=== PATIENT | male | born 1990 | race American Indian/Alaskan Native ===

== ENCOUNTER 2017-03-07 09:48 | Emergency (ER) | payer SELFPAY ==
[2017-03-07 09:58] VITALS: BP 137/95
[2017-03-07 10:30] LABS: Basophils % (Auto) 0.5 % (0.0-1.8); Eosinophils % (Auto) 1.4 % (0.0-4.3); Hematocrit 41.7 % (35.5-45.6); Hemoglobin 14.2 gm/dl (11.8-15.2); Mean Corpuscular HGB Conc 34 % (32-34); Mean Corpuscular Hemoglobin 31 pg (28-32); Mean Corpuscular Volume 91 fl (84-94); Platelet Count 161 K/mm3 (140-440); Red Blood Count 4.59 M/mm3 (3.65-5.03); Red Cell Distribution Width 14.1 % (13.2-15.2); White Blood Count 4.9 K/mm3 (4.5-11.0)
[2017-03-07 10:36] LABS: Anion Gap 20 mmol/L; BUN/Creatinine Ratio 6.25; Blood Urea Nitrogen 5 mg/dL (9-20); Calcium 9.5 mg/dL (8.4-10.2); Carbon Dioxide 27 mmol/L (22-30); Chloride 94.1 mmol/L (98-107); Glucose 103 mg/dL (75-100); Potassium 3.8 mmol/L (3.6-5.0); Sodium 137 mmol/L (137-145)
[2017-03-07 10:50] LABS: Bilirubin,Urine NEG (Negative); Blood,Urine SM (Negative); Ketones,Urine NEG (Negative); Leukocyte Esterase,Urine NEG (Negative); Nitrite,Urine NEG (Negative); Protein,Urine <15 mg/dL mg/dL (Negative); Urobilinogen,Urine < 2.0 mg/dL (<2.0); WBC,Urine < 1.0 /HPF (0.0-6.0)
[2017-03-07] MEDS ORDERED: ZOFRAN ODT PO ONE (12:15)
--- NOTE | 2017-03-07 12:42 | Emergency Department Report ---
Entered by BONG JACK, acting as scribe for ISRAEL HARDY PA. ED N/V/D HPI - General Chief complaint: Nausea/Vomiting/Diarrhea Stated complaint: VOMITING BLOOD/NO APPETITE Time Seen by Provider: 03/07/17 11:31 Source: patient Mode of arrival: Ambulatory Limitations: No Limitations - History of Present Illness Initial comments: 26 y/o male with asthma, presents to the Ed c/o nausea and vomiting that began 4 days ago. Associated symptoms include fatigue but he denies diarrhea, abdominal pain, fever and chills. No vomiting today.Denies urinary burning, frequency or urgency. denies Back pain. Admits to alcohol use and that he takes Goody powder a lot to prevent her from getting a headache when he drinks beer. Denies ETOH use over the last 4 days. Denies GONZALEZ. No alleviating or aggravating factors. NKDA. Patient said he was having N/V for the first 2 days. no vomiting since yesterday. No nausea today. He said he is feeling better. MD complaint: nausea, vomiting Onset/Timin -: days(s) Description of Vomiting: food contents Associated Abdominal Pain: No Pain Scale: 0 Improves with: none Worsens with: none Context: other ([place]) Associated Symptoms: nausea/vomiting. denies: myalgias, chest pain, cough, diaphoresis, fever/chills, headaches, loss of appetite, malaise, rash, dysuria, shortness of breath, syncope - Related Data Previous Rx's Medication Instructions Recorded Last Taken Type Promethazine [Phenergan TAB] 25 mg PO Q8HR PRN #12 tab 03/07/17 Unknown Rx Allergies Allergy/AdvReac Type Severity Reaction Status Date / Time pineapple Allergy BREAK OUT Verified 03/07/17 09:53 AROUND MOUTH ED Review of Systems Comment: All other systems reviewed and negative Constitutional: other (fatigue). denies: chills, fever Eyes: denies: eye pain, vision change ENT: denies: ear pain, throat pain, congestion Respiratory: no symptoms reported Cardiovascular: denies: chest pain, palpitations, dyspnea on exertion, edema, syncope, paroxysmal nocturnal dyspnea Gastrointestinal: nausea, vomiting. denies: abdominal pain, diarrhea, constipation, hematemesis, melena, hematochezia Genitourinary: denies: urgency, dysuria, frequency, hematuria, discharge, testicular pain, testicular mass Musculoskeletal: denies: back pain, joint swelling, arthralgia, myalgia Skin: denies: rash Neurological: denies: headache, weakness, numbness, paresthesias, confusion, abnormal gait, vertigo ED Past Medical Hx - Past Medical History Previous Medical History?: Yes Hx Asthma: Yes - Surgical History Past Surgical History?: No - Family History Family history: hypertension - Social History Smoking Status: Never Smoker Substance Use Type: Alcohol - Medications Home Medications: Home Medications Medication Instructions Recorded Confirmed Last Taken Type Promethazine [Phenergan TAB] 25 mg PO Q8HR PRN #12 tab 03/07/17 Unknown Rx ED Physical Exam - General Limitations: No Limitations General appearance: alert, in no apparent distress - Head Head exam: Present: atraumatic, normocephalic - Eye Eye exam: Present: normal appearance, PERRL, EOMI. Absent: conjunctival injection, nystagmus Pupils: Present: normal accommodation - ENT ENT exam: Present: normal exam, normal orophraynx, mucous membranes moist, TM's normal bilaterally, normal external ear exam - Neck Neck exam: Present: normal inspection, full ROM, other (supple). Absent: tenderness, meningismus, lymphadenopathy - Respiratory Respiratory exam: Present: normal lung sounds bilaterally. Absent: wheezes, rales, rhonchi, accessory muscle use - Cardiovascular Cardiovascular Exam: Present: regular rate, normal rhythm, normal heart sounds - GI/Abdominal GI/Abdominal exam: Present: soft, normal bowel sounds. Absent: distended, tenderness, guarding, rebound, rigid - Extremities Exam Extremities exam: Present: normal inspection, full ROM, normal capillary refill. Absent: tenderness, pedal edema, joint swelling, calf tenderness - Back Exam Back exam: Present: full ROM. Absent: tenderness, CVA tenderness (R), CVA tenderness (L), muscle spasm, paraspinal tenderness, vertebral tenderness, rash noted - Neurological Exam Neurological exam: Present: alert, oriented X3, normal gait - Psychiatric Psychiatric exam: Present: normal affect, normal mood - Skin Skin exam: Present: warm, dry, intact, normal color, other. Absent: rash ED Course Vital Signs 03/07/17 09:55 Temperature 98.4 F Pulse Rate 80 Respiratory 17 Rate Blood Pressure 137/95 O2 Sat by Pulse 100 Oximetry - Reevaluation(s) Reevaluation #1: 03/07/17 12:27 Patient here for nausea and vomiting 4 days. Patient to the emergency room and tolerated w 240 cc of Epogen without any nausea. He was given Zofran 4 mg ODT emergency room. ED Medical Decision Making - Lab Data Result diagrams: 03/07/17 10:00 03/07/17 10:00 Lab Results 03/07/17 03/07/17 03/07/17 Range/Units 10:00 10:00 10:39 WBC 4.9 (4.5-11.0) K/mm3 RBC 4.59 (3.65-5.03) M/mm3 Hgb 14.2 (11.8-15.2) gm/dl Hct 41.7 (35.5-45.6) % MCV 91 (84-94) fl MCH 31 (28-32) pg MCHC 34 (32-34) % RDW 14.1 (13.2-15.2) % Plt Count 161 (140-440) K/mm3 Lymph % (Auto) 48.0 H (13.4-35.0) % Kane % (Auto) 13.6 H (0.0-7.3) % Eos % (Auto) 1.4 (0.0-4.3) % Baso % (Auto) 0.5 (0.0-1.8) % Lymph # 2.3 (1.2-5.4) K/mm3 Kane # 0.7 (0.0-0.8) K/mm3 Eos # 0.1 (0.0-0.4) K/mm3 Baso # 0.0 (0.0-0.1) K/mm3 Seg Neutrophils % 36.5 L (40.0-70.0) % Seg Neutrophils # 1.8 (1.8-7.7) K/mm3 Sodium 137 (137-145) mmol/L Potassium 3.8 (3.6-5.0) mmol/L Chloride 94.1 L (98-107) mmol/L Carbon Dioxide 27 (22-30) mmol/L Anion Gap 20 mmol/L BUN 5 L (9-20) mg/dL Creatinine 0.8 (0.8-1.5) mg/dL Estimated GFR > 60 ml/min BUN/Creatinine Ratio 6.25 % Glucose 103 H (75-100) mg/dL Calcium 9.5 (8.4-10.2) mg/dL Urine Color Straw (Yellow) Urine Turbidity Clear (Clear) Urine pH 6.0 (5.0-7.0) Ur Specific [place] 1.004 (1.003-1.030) Urine Protein <15 mg/dl (Negative) mg/dL Urine Glucose (UA) Neg (Negative) mg/dL Urine Ketones Neg (Negative) mg/dL Urine Blood Sm (Negative) Urine Nitrite Neg (Negative) Urine Bilirubin Neg (Negative) Urine Urobilinogen < 2.0 (<2.0) mg/dL Ur Leukocyte Esterase Neg (Negative) Urine WBC (Auto) < 1.0 (0.0-6.0) /HPF Urine RBC (Auto) 2.0 (0.0-6.0) /HPF - Medical Decision Making ED Course: Patient came to the emergency room complaining of nausea and vomiting over 4 days. No diarrhea. Able to Tolerated liquids in the emergency room without any nausea or vomiting. Patient given Zofran 4 mg ODT in ER. Patient also reported that and vomiting is better last rest on Thursday and Thursday. He reported that when the vomiting started he had blood times one emesis with vomiting for months. Last bowel movement was yesterday and was normal. Discussed the patient is to stop taking Goody powder as this can cause inflammation of the stomach lining. Patient was understanding of discharge diagnosis and treatment plan and discharged home with prescription for Phenergan and to follow up with his primary care physician in 2 days. I also discussed lab and urine results with patient which were stable. ED Disposition Clinical Impression: Nausea & vomiting Qualifiers: Vomiting type: unspecified Vomiting Intractability: non-intractable Qualified Code(s): R11.2 - Nausea with vomiting, unspecified Disposition: DC-01 TO HOME OR SELFCARE Is pt being admited?: No Does the pt Need Aspirin: No Condition: Stable Instructions: Acute Nausea and Vomiting (ED) Additional Instructions: Follow up with your care physician in 2 days and if you do not have [facility]. Please stop using Goody Powder Do not Phenergan while driving this medication can cause drowsiness Increase your fluid intake Prescriptions: Promethazine [Phenergan TAB] 25 mg PO Q8HR PRN #12 tab PRN Reason: Nausea And Vomiting Referrals: PRIMARY CARE, [Primary Care Provider] - 03/09/17 [facility] [Provider Group] - 2-3 Days [facility] [Outside] - 03/09/17 Forms: Work/School Release Form(ED) This documentation as recorded by the GUERO grigsby ELIZABETH,accurately reflects the service I personally performed and the decisions made by me,ISRAEL HARDY PA.
== END 2017-03-07 12:49 | disposition home or self-care (01) ==
LOC: ED 09:48
DX: R11.2 Nausea with vomiting, unspecified (principal); J45.909 Unspecified asthma, uncomplicated; Z91.018 Allergy to other foods
CPT/HCPCS: 36415; 80048; 81001; 82962; 85025; 99283; Q0162

== ENCOUNTER 2019-02-17 05:55 | Emergency (ER) | payer OTHER ==
[2019-02-17 06:04] VITALS: BP 128/77
[2019-02-17] MEDS ORDERED: IBUPROFEN PO ONE (07:48)
--- NOTE | 2019-02-17 07:48 | Emergency Department Report ---
ED ENT HPI - General Chief complaint: Dental/Oral Stated complaint: TOOTH PAIN Time Seen by Provider: 02/17/19 07:44 Source: patient Mode of arrival: Ambulatory Limitations: No Limitations - History of Present Illness Initial comments: 28 y/o male comes in for 5 day history of tooth pain. Reports that the motrin is not working for his pain. No PMH, no Meds NKDA. Denies any trauma. MD complaint: tooth pain Onset/Timin -: days(s) Location: tooth # (17, 19) Severity: severe Severity scale (0 -10): 8 Quality: stabbing, aching Consistency: constant Improves with: none Worsens with: none Associated Symptoms: toothache. denies: fever, cough, gum swelling, pain with swallowing, sore throat, tinnitus, hearing loss - Related Data Previous Rx's Medication Instructions Recorded Last Taken Type Promethazine [Phenergan TAB] 25 mg PO Q8HR PRN #12 tab 03/07/17 Unknown Rx Amoxicillin [Trimox CAP] 500 mg PO Q8H #30 capsule 02/17/19 Unknown Rx Ibuprofen [Motrin 800 MG tab] 800 mg PO Q8HR PRN #30 tablet 02/17/19 Unknown Rx Allergies Allergy/AdvReac Type Severity Reaction Status Date / Time pineapple Allergy BREAK OUT Verified 03/07/17 09:53 AROUND MOUTH ED Dental HPI - General Chief complaint: Dental/Oral Stated complaint: TOOTH PAIN Time Seen by Provider: 02/17/19 07:44 Source: patient Mode of arrival: Ambulatory Limitations: No Limitations - Related Data Previous Rx's Medication Instructions Recorded Last Taken Type Promethazine [Phenergan TAB] 25 mg PO Q8HR PRN #12 tab 03/07/17 Unknown Rx Amoxicillin [Trimox CAP] 500 mg PO Q8H #30 capsule 02/17/19 Unknown Rx Ibuprofen [Motrin 800 MG tab] 800 mg PO Q8HR PRN #30 tablet 02/17/19 Unknown Rx Allergies Allergy/AdvReac Type Severity Reaction Status Date / Time pineapple Allergy BREAK OUT Verified 03/07/17 09:53 AROUND MOUTH ED Review of Systems ROS: Stated complaint: TOOTH PAIN Other details as noted in HPI Constitutional: denies: chills, fever Eyes: denies: eye pain, eye discharge, vision change ENT: dental pain. denies: ear pain, throat pain Respiratory: denies: cough, shortness of breath, wheezing Cardiovascular: denies: chest pain, palpitations Endocrine: no symptoms reported Gastrointestinal: denies: abdominal pain, nausea, diarrhea Genitourinary: denies: urgency, dysuria Musculoskeletal: denies: back pain, joint swelling, arthralgia Skin: denies: rash, lesions Neurological: denies: headache, weakness, paresthesias Psychiatric: denies: anxiety, depression Hematological/Lymphatic: denies: easy bleeding, easy bruising ED Past Medical Hx - Past Medical History Previous Medical History?: Yes Hx Asthma: Yes - Surgical History Past Surgical History?: No - Social History Smoking Status: Current Every Day Smoker Substance Use Type: None - Medications Home Medications: Home Medications Medication Instructions Recorded Confirmed Last Taken Type Promethazine [Phenergan TAB] 25 mg PO Q8HR PRN #12 tab 03/07/17 Unknown Rx Amoxicillin [Trimox CAP] 500 mg PO Q8H #30 capsule 02/17/19 Unknown Rx Ibuprofen [Motrin 800 MG tab] 800 mg PO Q8HR PRN #30 tablet 02/17/19 Unknown Rx ED Physical Exam - General Limitations: No Limitations General appearance: alert, in no apparent distress - Head Head exam: Present: atraumatic, normocephalic, other (no facial swelling noted) - Eye Eye exam: Present: normal appearance - ENT ENT exam: Present: mucous membranes moist - Expanded ENT Exam Expanded Teeth exam: Present: dental caries. Absent: gingival enlargement - Neck Neck exam: Present: normal inspection, full ROM - Neurological Exam Neurological exam: Present: alert, oriented X3 - Psychiatric Psychiatric exam: Present: normal affect, normal mood - Skin Skin exam: Present: warm, dry, intact, normal color. Absent: rash ED Course Vital Signs 02/17/19 06:00 Temperature 98.5 F Pulse Rate 85 Respiratory 18 Rate Blood Pressure 128/77 O2 Sat by Pulse 98 Oximetry ED Medical Decision Making - Medical Decision Making 28 y/o male comes in for tooth pain for 5 days. Ibuprofen 800 mg given for pain management. Referral to [facility]. Critical care attestation.: If time is entered above; I have spent that time in minutes in the direct care of this critically ill patient, excluding procedure time. ED Disposition Clinical Impression: Toothache Disposition: TO HOME OR SELFCARE Is pt being admited?: No Does the pt Need Aspirin: No Condition: Stable Instructions: Toothache (ED) Additional Instructions: Complete antibiotics as prescribed and pain medication as needed. Follow up with a Dentist. Prescriptions: Ibuprofen [Motrin 800 MG tab] 800 mg PO Q8HR PRN #30 tablet PRN Reason: Pain , Severe (7-10) Amoxicillin [Trimox CAP] 500 mg PO Q8H #30 capsule Referrals: [facility] [Outside] - 3-5 Days [facility] [Outside] - 3-5 Days [facility] [Outside] - 3-5 Days
== END 2019-02-17 08:07 | disposition home or self-care (01) ==
LOC: ED 05:55
DX: K08.89 Other specified disorders of teeth and supporting structures (principal); F17.200 Nicotine dependence, unspecified, uncomplicated; J45.909 Unspecified asthma, uncomplicated; Z91.018 Allergy to other foods

== ENCOUNTER 2019-03-16 02:43 | Emergency (ER) | payer SELFPAY ==
[2019-03-16 02:47] VITALS: BP 140/85
[2019-03-16] MEDS ORDERED: IBUPROFEN PO ONE (03:17)
[2019-03-16] MEDS ORDERED: TRIMOX PO ONE (07:12)
[2019-03-16] MEDS ORDERED: NORCO 5/325 PO ONE (07:36)
[2019-03-16] MEDS ORDERED: BICILLIN L-A IM ONE (07:36)
--- NOTE | 2019-03-16 07:44 | Emergency Department Report ---
HPI - General Chief Complaint: Dental/Oral Time Seen by Provider: 03/16/19 07:12 - HPI HPI: He is a 28-year-old male who comes to the ER complaining of right lower molar area dental pain. He was seen and treated for the same approximately a month ago. He did not follow-up with the dentist. He is angry that in the past he has only gotten Motrin for his pain. He does have a broken tooth #17. ABCs intact. Taking by mouth on exam. Vital signs are stable. Afebrile. Denies taking any home medications. No major medical problems. ED Past Medical Hx - Past Medical History Previous Medical History?: Yes Hx Asthma: Yes - Surgical History Past Surgical History?: No - Family History Family history: no significant - Social History Smoking Status: Current Every Day Smoker Substance Use Type: None - Medications Home Medications: Home Medications Medication Instructions Recorded Confirmed Last Taken Type Amoxicillin [Trimox CAP] 500 mg PO Q8H #30 capsule 03/16/19 Unknown Rx Ibuprofen [Motrin 800 MG tab] 800 mg PO Q8HR PRN #30 tablet 03/16/19 Unknown Rx traMADol [Ultram] 50 mg PO Q6HR PRN #10 tablet 03/16/19 Unknown Rx ED Review of Systems ROS: Stated complaint: TOOTHACHE Other details as noted in HPI Comment: All other systems reviewed and negative Physical Exam - Physical Exam Vital Signs: Vital Signs 03/16/19 02:44 Temperature 99 F Pulse Rate 87 Respiratory 18 Rate Blood Pressure 140/85 O2 Sat by Pulse 99 Oximetry Physical Exam: WDWN patient in NAD VS per RN flow sheet Alert and oriented to person, place and time. S1-S2. No S3 or S4. No systolic or diastolic murmur. No JVD. No pitting edema. Lungs clear to auscultation bilaterally anteriorly and posteriorly. Abdomen soft nontender bowel sounds x4 Moves all extremities well. Mood and affect appropriate. Dental pain tooth #17. Tooth is cracked. This is not new. Patient has not followed up with a dentist. There is no abscess. Vital signs are stable. He is taking by mouth. There is no trismus. There is no abscess. There is no leuk trase. Patient is ambulatory and in no acute distress. ED Course Vital Signs 03/16/19 02:44 Temperature 99 F Pulse Rate 87 Respiratory 18 Rate Blood Pressure 140/85 O2 Sat by Pulse 99 Oximetry ED Medical Decision Making - Medical Decision Making I medicated the patient with IM Bicillin. He's been treated for pain. I've had a long discussion with the patient about what we are doing is just temporizing his dental problem and that he needs to see a dentist. He verbalizes understanding. He is angry that he got Motrin last time and that did not do anything for his pain. I explained to him at that's why he needed to go to the dentist. Patient being discharged home with dental follow-up Vital Signs 03/16/19 02:44 Temperature 99 F Pulse Rate 87 Respiratory 18 Rate Blood Pressure 140/85 O2 Sat by Pulse 99 Oximetry Critical care attestation.: If time is entered above; I have spent that time in minutes in the direct care of this critically ill patient, excluding procedure time. ED Disposition Clinical Impression: Pain, dental, Dental caries Disposition: - TO HOME OR SELFCARE Is pt being admited?: No Does the pt Need Aspirin: No Condition: Stable Instructions: Dental Caries (ED), Toothache (ED) Additional Instructions: DIET TOLERATED MEDS ORDERED TODAY IN ER FOLLOW INSTRUCTIONS ON THE BOTTLE FOLLOW UP PCP WITHIN 48 HOURS TO ENSURE YOU ARE GETTING BETTER ACTIVITY TOLERATED MOTRIN OR TYLENOL FOR PAIN OR FEVER RETURN TO THE ER FOR WORSENING SYMPTOMS NOT RELIEVED BY YOUR MEDICATIONS. Follow-up with dentist as we have discussed Referrals: DERRELL LI MD [Primary Care Provider] - 3-5 Days [facility] [Outside] - 3-5 Days [facility] [Outside] - 3-5 Days Time of Disposition: 07:43
== END 2019-03-16 08:46 | disposition home or self-care (01) ==
LOC: ED 02:43
DX: K02.9 Dental caries, unspecified (principal); F17.200 Nicotine dependence, unspecified, uncomplicated; J45.909 Unspecified asthma, uncomplicated; Z91.018 Allergy to other foods
CPT/HCPCS: 96372; 99282; J0561

== ENCOUNTER 2019-08-12 01:43 | Emergency (ER) | payer SELFPAY ==
[2019-08-12 01:52] VITALS: BP 132/74
[2019-08-12] MEDS ORDERED: HYDROcodone/ACETAMINOPHEN 5-325 MG TAB PO ONE (02:20)
[2019-08-12] MEDS ORDERED: SULFAMETHOXAZOLE/TRIMETHOPRIM 800/160MG DS TAB PO ONE (02:20)
--- NOTE | 2019-08-12 02:26 | Emergency Department Report ---
HPI - General Chief Complaint: Dental/Oral Time Seen by Provider: 08/12/19 02:20 - HPI HPI: 28-year-old -[place] male presents to the emergency department with complaint of pain to the posterior upper jaw, bilaterally. Patient says "I have some holes in my teeth." The patient has been seen here before, and has a history of, multiple previous dental caries. Despite the fact that this has been going on for the past 1-2 months, the patient has not seen a dentist because "I don't have the money for that." He says he took some Goody powder and Tylenol without much relief. No fever. No drooling or trismus. He has a past medical history of asthma. ED Past Medical Hx - Past Medical History Previous Medical History?: Yes Hx Asthma: Yes - Surgical History Past Surgical History?: No - Social History Smoking Status: Never Smoker Substance Use Type: None - Medications Home Medications: Home Medications Medication Instructions Recorded Confirmed Last Taken Type Amoxicillin [Trimox CAP] 500 mg PO Q8H #30 capsule 03/16/19 Unknown Rx traMADoL [Ultram] 50 mg PO Q6HR PRN #10 tablet 03/16/19 Unknown Rx Ibuprofen [Motrin 800 MG tab] 800 mg PO Q8HR PRN #20 tablet 08/12/19 Unknown Rx Sulfamethoxazole/Trimethoprim 1 each PO BID #14 tablet 08/12/19 Unknown Rx [Bactrim DS TAB] ED Review of Systems ROS: Stated complaint: TOOTHACHE Other details as noted in HPI Comment: All other systems reviewed and negative Constitutional: denies: fever ENT: dental pain. denies: ear pain, throat pain Respiratory: denies: shortness of breath Skin: denies: rash, lesions Physical Exam - Physical Exam Vital Signs: Vital Signs 08/12/19 01:47 Temperature 98.5 F Pulse Rate 89 Respiratory 18 Rate Blood Pressure 132/74 O2 Sat by Pulse 98 Oximetry Physical Exam: GENERAL: The patient is well-developed well-nourished. HENT: Normocephalic. Atraumatic. Patient has moist mucous membranes. No tonsillar hypertrophy, erythema or exudates. The patient has multiple dental caries. There is no visible or palpable abscess. No drooling or trismus. EYES: Extraocular motions are intact. NECK: Supple. Trachea is midline. No obvious cervical lymphadenopathy. ABDOMEN: Abdomen is soft, nontender. Patient has normal bowel sounds. There is no abdominal distention. SKIN: Skin is warm and dry. NEURO: The patient is awake, alert, and oriented. The patient is cooperative. The patient has no focal neurologic deficits. Normal speech. MUSCULOSKELETAL: There is no tenderness or deformity. There is no evidence of acute injury. ED Course Vital Signs 08/12/19 01:47 Temperature 98.5 F Pulse Rate 89 Respiratory 18 Rate Blood Pressure 132/74 O2 Sat by Pulse 98 Oximetry ED Medical Decision Making - Medical Decision Making This patient presents with a 1-2 month history of dental pain and he has not yet seen a dentist. On examination I do see multiple dental caries but there is no visible or palpable abscess. The patient has no drooling or trismus. He has a normal voice. He does not appear in any distress. His vital signs of been stable including being afebrile. The patient does not appear to have any emergency medical condition that requires admission or immediate intervention and he appears safe for outpatient follow-up with a dentist. He has been placed on antibiotics and given anti-inflammatories for his discomfort. He has been instructed to return to the ER with any worsening of his symptoms or any acute distress. - Differential Diagnosis dental caries, dental abscess, parotitis Critical Care Time: No Critical care attestation.: If time is entered above; I have spent that time in minutes in the direct care of this critically ill patient, excluding procedure time. ED Disposition Clinical Impression: Dental caries, Toothache Disposition: - TO HOME OR SELFCARE Is pt being admited?: No Condition: Stable Instructions: Dental Caries (ED), Toothache (ED) Additional Instructions: Please follow-up with a dentist as soon as possible. Return to the emergency Department with any worsening of your symptoms including any difficulty swallowing, development of fever, facial swelling, or with any acute distress. Prescriptions: Sulfamethoxazole/Trimethoprim [Bactrim DS TAB] 1 each PO BID #14 tablet Ibuprofen [Motrin 800 MG tab] 800 mg PO Q8HR PRN #20 tablet PRN Reason: Pain , Severe (7-10) Referrals: [facility] [Outside] - 2-3 Days Time of Disposition: 02:25
== END 2019-08-12 02:59 | disposition home or self-care (01) ==
LOC: ED 01:43
DX: K02.9 Dental caries, unspecified (principal); J45.909 Unspecified asthma, uncomplicated